=== PATIENT | female | born 1960 | race Caucasian/White ===

== ENCOUNTER 2018-10-12 12:44 | Day surgery (SDC) | payer BC ==
[~2018-10-12] VITALS: Ht 152.4 cm; Wt 61.5 kg
[2018-10-12 15:03] VITALS: Ht 152.4 cm; Wt 61.5 kg
[2018-10-12] MEDS ORDERED: ATORVASTATIN (15:08)
[2018-10-12] MEDS ORDERED: METFORMIN (15:08)
[2018-10-12] MEDS ORDERED: IBUPROFEN (15:10)
[2018-10-12] MEDS ORDERED: VITAMIN D3 (15:10)
[2018-10-12 15:40] VITALS: BP 130/81; PULSE 78; RESP 14
[2018-10-12] MEDS ORDERED: MIDAZOLAM 1 MG/ML 2 ML INJ ONE ×2 (16:24)
[2018-10-12] MEDS ORDERED: FENTAnyl 50 MCG/ML VIAL ONE (16:24)
[2018-10-12 16:38] VITALS: BP 91/55; RESP 15
== END 2018-10-12 17:12 | disposition home or self-care (01) ==
LOC: GIL 12:44
PROVIDERS: ATTEND Internal Medicine Gastroenterology
DX: Z12.11 Encounter for screening for malignant neoplasm of colon (principal); D12.5 Benign neoplasm of sigmoid colon; K64.8 Other hemorrhoids; E11.9 Type 2 diabetes mellitus without complications
CPT/HCPCS: 45380; 82962; 88305; J2250; J3010; Z7610